=== PATIENT | female | born 1995 | race Two or more races ===

== ENCOUNTER 2022-04-01 16:37 | Outpatient (REF) | payer MEDICAID, OTHER, SELFPAY ==
--- NOTE | ~2022-04-01 | XR_ITS ---
EXAMINATION: XR ABDOMEN KUB CLINICAL INDICATION: Lower abdominal pain. COMPARISON: None TECHNIQUE: 2 AP views of the abdomen and pelvis are submitted. FINDINGS: The bowel gas pattern is normal with no evidence of ileus or obstruction. No unusual soft tissue calcifications are noted. The bones are unremarkable. An intrauterine device is noted. There are small calcified buttock granulomas. XR/XR KUB IMPRESSION: Unremarkable examination.
[2022-04-01 17:02] LABS: MANUAL DIFF FLAG NO
[2022-04-01 18:25] LABS: Alanine Aminotransferase 24 U/L (0-31); Albumin Level 4.2 g/dL (3.5-5.0); Alkaline Phosphatase 105 U/L (39-117); Anion Gap 10 (12-20); Aspartate Amino Transferase 21 U/L (5-31); Bilirubin Total 0.9 mg/dL (0.0-1.0); Blood Urea Nitrogen 18 mg/dL (9-16); Carbon Dioxide 25 mmol/L (22-29); Chloride 105 mmol/L (96-108); Estimated Glomerular Filt Rate > 60; Glucose Random 84 mg/dL (60-115); Potassium 4.4 mmol/L (3.3-5.1); Sodium 136 mmol/L (135-145); Total Protein 7.3 g/dL (6.5-8.0)
[2022-04-01 18:29] LABS: Basophils Percent Auto 0.5 % (0-2); Eosinophils Absolute Auto 0.4 X10*3/uL (0.0-0.4); Eosinophils Percent Auto 4.7 % (0-4); Hematocrit 39.7 % (37.0-47.0); Hemoglobin 13.2 g/dl (12.0-16.0); Imm Gran Abs Auto 0.05 X10*3/uL (0.00-0.03); Imm Gran Pct Auto 0.7 % (0.0-0.4); Lymphocytes Absolute Auto 2.8 X10*3/uL (1.2-4.9); Lymphocytes Percent Auto 37.1 % (20-40); Mean Corpuscular HGB Conc 33.2 g/dl (31.0-35.0); Mean Corpuscular Hemoglobin 28.9 pg (27.0-33.0); Mean Corpuscular Volume 87.1 fL (80.0-98.0); Mean Platelet Volume 10.6 fL (9.4-12.3); Monocytes Absolute Auto 0.7 X10*3/uL (0.1-1.2); Neutrophils Absolute Auto 3.6 x10*3/uL (2.0-8.3); Platelet Count 346 X10*3/uL (160-400); Red Blood Count 4.56 X10*6/uL (4.20-5.50); Red Cell Distribution Width 12.3 % (11.0-16.0); White Blood Count 7.4 X10*3/uL (4.8-10.8)
[2022-04-01 18:43] LABS: Erythrocyte Sedimentation Rate 5 MM/HR (0-20)
== END 2022-04-01 16:38 | disposition home or self-care (01) ==
LOC: HO.XRAY 16:37
PROVIDERS: Absent Provider Nurse Practitioner Family; PCP Nurse Practitioner Family; Visit Provider Internal Medicine
DX: R10.30 Lower abdominal pain, unspecified (principal)
CPT/HCPCS: 36415; 74018; 80053; 85025; 85652

== ENCOUNTER 2023-02-25 15:36 | Outpatient (REF) | payer MEDICAID, OTHER, SELFPAY ==
--- NOTE | ~2023-02-25 | XR_ITS ---
EXAMINATION: XR CHEST CLINICAL INFORMATION: Cough for one month COMPARISON: None available. TECHNIQUE: 2 views of the chest were obtained. FINDINGS: No pneumothorax or pleural effusion. Heart normal size. No evidence of pulmonary edema. There are some increased markings right lung base which may be related to minor atelectasis. No confluent airspace disease is seen. XR/XR chest 2V IMPRESSION: No significant acute parenchymal disease.
== END 2023-02-25 15:37 | disposition home or self-care (01) ==
LOC: HO.HHCX 15:36
PROVIDERS: Visit Provider Family Medicine
DX: R05.2 Subacute cough (principal)
CPT/HCPCS: 71046

== ENCOUNTER 2023-06-07 15:26 | Outpatient (REF) | payer MEDICAID, OTHER, SELFPAY ==
[2023-06-07 17:38] LABS: HCG Quantitative 77250 mIU/mL
== END 2023-06-07 15:27 | disposition home or self-care (01) ==
LOC: HO.HHCL 15:26
PROVIDERS: Visit Provider Registered Nurse
DX: Z32.00 Encounter for pregnancy test, result unknown (principal)
CPT/HCPCS: 36415; 84702

== ENCOUNTER 2025-03-19 18:13 | Outpatient (REF) | payer MEDICAID, OTHER, SELFPAY ==
[2025-03-22 00:04] LABS: C. trachomatis RNA TMA NOT DETECTED (NOT DETECTED); N. gonorrhoeae RNA TMA NOT DETECTED (NOT DETECTED)
[2025-03-22 00:09] LABS: Trichomonas (NAAT) NOT DETECTED (NOT DETECTED)
== END 2025-03-19 18:14 | disposition home or self-care (01) ==
LOC: HO.HHCLNP 18:13
PROVIDERS: Visit Provider Advanced Practice Midwife
DX: Z12.4 Encounter for screening for malignant neoplasm of cervix (principal); Z11.3 Encounter for screening for infections with a predominantly sexual mode of transmission
CPT/HCPCS: 87491; 87591; 87661; 88175